=== PATIENT | female | born 1940 | race Caucasian/White ===

== ENCOUNTER 2025-06-23 09:34 | Outpatient (CLI) | payer MEDICARE | END 2025-06-23 09:35 | disposition home or self-care (01) | LOC: CSHSLEEP 09:34 | PROVIDERS: ATTEND Nurse Practitioner Family | DX: G47.33 Obstructive sleep apnea (adult) (pediatric) (principal); G47.10 Hypersomnia, unspecified; G47.9 Sleep disorder, unspecified; R53.83 Other fatigue; I10 Essential (primary) hypertension | CPT/HCPCS: 95800 ==